=== PATIENT | female | born 1975 | race Caucasian/White ===

== ENCOUNTER → 2017-03-15 | Outpatient (CLI) | payer BC, OTHER | LOC: CIMAGING 17:11 | PROVIDERS: ATTEND Obstetrics & Gynecology | DX: R10.2 Pelvic and perineal pain (principal); D25.9 Leiomyoma of uterus, unspecified | CPT/HCPCS: 76856-PO ==

== ENCOUNTER → 2018-06-18 | Outpatient (CLI) | payer BC | LOC: FIMAGING 15:38 | PROVIDERS: ATTEND Family Medicine | DX: B17.9 Acute viral hepatitis, unspecified (principal); R74.8 Abnormal levels of other serum enzymes ==